=== PATIENT | male | born 1960 | race Caucasian/White ===

== ENCOUNTER 2017-05-24 20:56 | Emergency (ER) | payer BC ==
[~2017-05-24] VITALS: Ht 177.8 cm; Wt 117.8 kg
[~2017-05-24 20:56] MED LIST: ASPI-435 PO; CYAN500T PO; GLC/500 PO; GLUCTAB7 PO; LISI2.5T5 PO; OMEP20TA PO; SIMV20TA5 PO
[2017-05-24 21:01] VITALS: TEMP 36.8; Ht 177.8 cm; Wt 117.8 kg
[2017-05-24] MEDS ORDERED: LPT/20 PO (21:31)
[2017-05-24] MEDS ORDERED: METF-384 PO (21:31)
[2017-05-24] MEDS ORDERED: GLC5 PO (21:31)
--- NOTE | 2017-05-24 22:04 | DIAGNOSTIC IMAGING REPORT ---
RIGHT RIBS UNILATERAL WITH PA CHEST CLINICAL HISTORY: Right-sided rib pain COMPARISON STUDY: No previous studies for comparison. FINDINGS: The erect chest reveals no pneumothorax. There is no focal pulmonary consolidation. No right-sided rib fractures are visualized. IMPRESSION: No evidence of pneumothorax. No right-sided rib fractures are visualized. Electronically signed by: Ketan Kaplan M.D. 05/24/2017 10:03 PM Dictated Date/Time: 05/24/2017 10:02 PM
--- NOTE | 2017-05-24 22:06 | EMERGENCY ROOM VISIT NOTE ---
ED Visit Note First contact with patient: 21:07 CHIEF COMPLAINT: Right rib injury this morning HISTORY OF PRESENT ILLNESS: Patient is a 57-year-old white male who presents emergency department for evaluation of right lower rib pain after an injury this morning. He reports that he leaned of a window to retrieve something on some scaffolding, and heard a crack in his right lower ribs. Since then he has noted pain with palpation, bending over, coughing and deep breathing. He denies any midsternal chest pain, no shortness of breath, cough or hemoptysis. The pain does not radiate to his back or flank or into his abdomen. He presently rates his pain a 0/10. He did not take any medications for his symptoms. REVIEW OF SYSTEMS: Review of systems as per HPI. All other systems reviewed were negative. At least 6 systems reviewed. PMH: Electronic medical records are reviewed and summarized as above/below. See Problem List. SOCIAL HISTORY: Patient lives at home with his family. Former smoker. PHYSICAL EXAM: Vital Signs: Reviewed Nurse's notes. GENERAL: Patient is an obese 57-year-old white male who is awake and alert and in no acute distress. Chest: There are no signs of deformities, contusions or abrasions to the chest wall. There is no obvious crepitus or paradoxical chest rise. The patient has discomfort to palpation of the inferior right ribs, in the anterior axillary line. No flail segment or fracture crepitus is appreciated. Heart: Regular rate, and regular rhythm. Lungs: Breath sounds equal and clear to auscultation without wheezes, rales, or rhonchi heard. Abdomen: Soft, completely nontender, nondistended, with good bowel sounds. There is no sign of trauma such as contusions, abrasions or penetrations. There are no palpable pulsatile masses or hepatosplenomegaly. There is no guarding, rigidity, or rebound noted. EMERGENCY DEPARTMENT COURSE: Patient declined analgesia. Old records are reviewed. Ribs with chest films were obtained and negative for acute fracture. No pneumothorax. Conservative care measures were discussed. Patient declined narcotic analgesia. Differential diagnosis includes contusion, rib fracture, intercostal neuritis, muscle strain, among others. I do not suspect intra-abdominal or retroperitoneal injury. RIGHT RIBS UNILATERAL WITH PA CHEST CLINICAL HISTORY: Right-sided rib pain COMPARISON STUDY: No previous studies for comparison. FINDINGS: The erect chest reveals no pneumothorax. There is no focal pulmonary consolidation. No right-sided rib fractures are visualized. IMPRESSION: No evidence of pneumothorax. No right-sided rib fractures are visualized. Problem List Medical Problems: (1) Diab Amisha Wo Compl, Type Ii Or Unspec Type, Not Uncntrld Status: Chronic (2) GERD (gastroesophageal reflux disease) Status: Chronic (3) Hyperlipidemia Nec/Nos Status: Chronic (4) Puncture wound of foot Status: Resolved (5) Sleep Apnea, Unspecified Status: Chronic Current/Historical Medications Scheduled Aspirin (Aspirin 81), 1 TAB PO QAM Atorvastatin (Atorvastatin Calcium), 20 MG PO DAILY Glipizide (Glipizide), 5 MG PO DAILY Lisinopril (Lisinopril), 2.5 MG PO HS Metformin Hcl (Glucophage), 1,000 MG PO BID Omeprazole (Omeprazole), 1 TAB PO QAM Allergies Coded Allergies: No Known Allergies (Verified , 10/03/15) Vital Signs Date Time Temp Pulse Resp B/P (MAP) Pulse Ox O2 Delivery O2 Flow Rate FiO2 05/24/17 21:01 36.8 86 16 133/84 97 Room Air Departure Information Impression Primary Impression: Rib injury Referrals Lachelle Jeong D.O. (PCP) Patient Instructions My [facility] Additional Instructions Apply ice to ribs for swelling and pain. Do deep breathing and coughing exercises as instructed. Limit activities until ribs heal. Ibuprofen(Motrin, Advil) may be used for fever or pain. Use 600mg every six hours as needed. Take with food. Avoid using more than 2400mg in a 24 hour period. Do not use 2400mg per day for more than three consecutive days without physician direction. Prolonged inappropriate use can lead to stomach upset or ulcers. (AND/OR) Acetaminophen(Tylenol) may be used for fever or pain. Use 1000mg every six hours as needed. Avoid using more than 3000mg in a 24 hour period. Follow-up family doctor as needed.
[2017-05-24 22:30] VITALS: BP 145/84; PULSE 81; O2SAT 96
== END 2017-05-24 22:20 | disposition home or self-care (01) ==
LOC: C.EDB 20:57 → C.EDD 22:20
DX: S29.9XXA Unspecified injury of thorax, initial encounter (principal); X50.0XXA Overexertion from strenuous movement or load, initial encounter; Z68.37 Body mass index [BMI] 37.0-37.9, adult; E66.9 Obesity, unspecified; Z87.891 Personal history of nicotine dependence; E11.9 Type 2 diabetes mellitus without complications; K21.9 Gastro-esophageal reflux disease without esophagitis; G47.30 Sleep apnea, unspecified; Z79.82 Long term (current) use of aspirin; Z79.899 Other long term (current) drug therapy